=== PATIENT | male | born 1980 | race Caucasian/White ===

== ENCOUNTER 2016-12-13 15:09 | Emergency (ER) | payer OTHER ==
[~2016-12-13] VITALS: Wt 89.8 kg
[~2016-12-13 15:09] MED LIST: AMOXICILLIN500 M3 PO; AORACILLIN B500 MG PO; ATIVAN; ATIVAN0.5 MG PO; ATIVAN1 MG PO; AUGMENTIN 875 M1 TAB PO; BACTRIM DS 8001 TA1 PO; CIPRODEX 0.3%-7.5 ML OT; CLARITIN10 MG PO; COLACE100 MG PO; FIORICET 325 MG1 TAB PO; Fioricet 325 MG1 TAB PO; HYDROCODONE BIT1 T11 PO; KEFLEX500 MG PO; MOTRIN800 MG PO; NKHM; NORCO 325 MG-51 TAB PO; NORFLEX100 MG PO; PREDNISONE20 MG PO; TRAMADOL HCL50 MG PO; VICODIN 5/500 505 MG PO; ZANTAC150 MG PO; ZITHROMAX Z PA250 MG PO; ZOFRAN4 MG PO; ZYRTEC10 MG PO
[2016-12-13] MEDS ORDERED: NAPROSYN500 MG PO (15:58)
[2016-12-13] MEDS ORDERED: CYCLOBENZAPRINE10 MG PO (15:58)
== END 2016-12-13 16:00 | disposition home or self-care (01) ==
LOC: ED 15:09
DX: S39.012A Strain of muscle, fascia and tendon of lower back, initial encounter (principal); F17.200 Nicotine dependence, unspecified, uncomplicated; X50.9XXA Other and unspecified overexertion or strenuous movements or postures, initial encounter; Y93.89 Activity, other specified; Y92.9 Unspecified place or not applicable; Y99.9 Unspecified external cause status

== ENCOUNTER 2017-03-28 17:41 | Emergency (ER) | payer OTHER ==
[~2017-03-28] VITALS: Ht 182.8 cm; Wt 88.9 kg
[~2017-03-28 17:41] MED LIST changes: +CYCLOBENZAPRINE10 MG PO; +NAPROSYN500 MG PO
[2017-03-28] MEDS ORDERED: ANAPROX DS550 MG PO (17:58)
[2017-03-28] MEDS ORDERED: CYCLOBENZAPRINE10 MG PO (17:58)
== END 2017-03-28 18:00 | disposition home or self-care (01) ==
LOC: ED 17:41
DX: M54.2 Cervicalgia (principal); F14.10 Cocaine abuse, uncomplicated; F17.200 Nicotine dependence, unspecified, uncomplicated

== ENCOUNTER 2017-06-26 15:46 | Emergency (ER) | payer OTHER ==
[~2017-06-26] VITALS: Wt 81.6 kg
--- NOTE | ~2017-06-26 | EKG ---
[place], [place] ELECTROCARDIOGRAM REPORT NAME: MOISES MARTINES UNIT #: [id number] ROOM: DOCTOR: LEEANNA PILLAI MD BIRTHDATE: [birth year] DOS: 06/26/2017 TIME: 1556 hours. Normal sinus rhythm at 86 beats per minute. Low voltage in limb leads. The tracing is otherwise normal. No previous tracing is available for comparison. LEEANNA PILLAI MD CM:EKGRPT:ELECTROCARDIOGRAM REPORT [id number] LEEANNA PILLAI MD
[~2017-06-26 15:46] MED LIST changes: +ANAPROX DS550 MG PO
[2017-06-26 16:09] LABS: BASO # 0.1 10*3/uL (0.0-0.1); EOS # 0.2 10*3/uL (0.0-0.4); EOS % 1.9 % (1.0-4.0); HEMATOCRIT 45.7 % (42.0-52.0); HEMOGLOBIN 15.2 g/dl (14.0-18.0); LYMPH # 4.4 10*3/uL (1.3-4.4); LYMPH % 39.4 % (27.0-41.0); MEAN CELL VOLUME 90.1 fl (80.0-94.0); MEAN CORPUSCULAR HGB CONC 33.3 g/dl (33.0-37.0); MEAN PLATELET VOLUME 8.8 fl (9.6-12.3); MONO # 1.1 10*3/uL (0.1-1.0); MONO % 10.2 % (3.0-9.0); NEUT # 5.2 10*3/uL (2.3-7.9); NEUT % 47.1 % (47.0-73.0); PLATELET COUNT AUTOMATED 347 10*3/uL (130-400); RED BLOOD COUNT 5.07 10*6/uL (4.50-5.90); RED CELL DISTRI WIDTH 14.3 % (0-14.5); WHITE BLOOD COUNT 11.1 10*3/uL (4.8-10.8)
[2017-06-26 16:21] LABS: ACT PARTIAL THROMBO TIME 25.1 SECONDS (20.8-31.5)
[2017-06-26 16:27] LABS: ALBUMIN 4.2 gm/dl (3.1-4.5); ALKALINE PHOSPHATASE 72 U/L (45-117); BUN 9 mg/dl (7-24); CHLORIDE 106 mmol/L (98-107); CREATININE 0.91 mg/dL (0.70-1.30); LIPASE 112 U/L (73-393); POTASSIUM 3.7 mmol/L (3.5-5.1); SGOT/AST 22 IU/L (3-35); SGPT/ALT 38 U/L (12-78); SODIUM 140 mmol/L (136-145); TOTAL PROTEIN 7.7 gm/dL (6.4-8.2)
[2017-06-26 16:28] LABS: TROPONIN I < 0.015 ng/ml (<0.045)
[2017-06-26] MEDS ORDERED: ATIVAN1 MG PO (17:54)
== END 2017-06-26 18:02 | disposition home or self-care (01) ==
LOC: ED 15:46
PROVIDERS: Emergency Medicine
DX: F41.9 Anxiety disorder, unspecified (principal); R07.9 Chest pain, unspecified; R06.02 Shortness of breath; F17.200 Nicotine dependence, unspecified, uncomplicated

== ENCOUNTER 2017-07-03 01:21 | Emergency (ER) | payer OTHER ==
[~2017-07-03] VITALS: Ht 177.8 cm; Wt 90.7 kg
[2017-07-03 02:13] LABS: BASO # 0.1 10*3/uL (0.0-0.1); BASO % 0.7 % (0.0-1.0); EOS # 0.3 10*3/uL (0.0-0.4); EOS % 2.4 % (1.0-4.0); HEMATOCRIT 43.8 % (42.0-52.0); HEMOGLOBIN 14.9 g/dl (14.0-18.0); LYMPH # 3.8 10*3/uL (1.3-4.4); LYMPH % 33.7 % (27.0-41.0); MEAN CELL VOLUME 89.8 fl (80.0-94.0); MEAN CORPUSCULAR HGB 30.5 pg (27.0-31.0); MEAN PLATELET VOLUME 8.9 fl (9.6-12.3); MONO # 1.3 10*3/uL (0.1-1.0); MONO % 11.2 % (3.0-9.0); NEUT # 5.8 10*3/uL (2.3-7.9); NEUT % 51.6 % (47.0-73.0); PLATELET COUNT AUTOMATED 333 10*3/uL (130-400); RED BLOOD COUNT 4.88 10*6/uL (4.50-5.90); RED CELL DISTRI WIDTH 13.4 % (0-14.5); WHITE BLOOD COUNT 11.3 10*3/uL (4.8-10.8)
[2017-07-03 02:29] LABS: ALBUMIN 3.8 gm/dl (3.1-4.5); ALKALINE PHOSPHATASE 66 U/L (45-117); BUN 18 mg/dl (7-24); CHLORIDE 105 mmol/L (98-107); CREATININE 0.77 mg/dL (0.70-1.30); POTASSIUM 3.5 mmol/L (3.5-5.1); SGOT/AST 26 IU/L (3-35); SGPT/ALT 59 U/L (12-78); SODIUM 142 mmol/L (136-145)
[2017-07-03 02:30] LABS: TROPONIN I < 0.015 ng/ml (<0.045)
== END 2017-07-03 05:20 | disposition home or self-care (01) ==
LOC: ED 01:21
PROVIDERS: Family Medicine
DX: I10 Essential (primary) hypertension (principal); R07.9 Chest pain, unspecified; R51 Headache; R11.0 Nausea; R42 Dizziness and giddiness; Z91.19 Patient's noncompliance with other medical treatment and regimen; F17.200 Nicotine dependence, unspecified, uncomplicated

== ENCOUNTER 2017-08-17 17:58 | Emergency (ER) | payer OTHER ==
[~2017-08-17] VITALS: Ht 182.8 cm; Wt 97.1 kg
[2017-08-17] MEDS ORDERED: PROAIR HFA8.5 GM INH (19:06)
[2017-08-17] MEDS ORDERED: HYCODAN/HYDROMET5 ML PO (19:06)
[2017-08-17] MEDS ORDERED: TESSALON PERLE100 M1 PO (19:06)
== END 2017-08-17 19:21 | disposition home or self-care (01) ==
LOC: ED 17:58
DX: B34.9 Viral infection, unspecified (principal); F17.200 Nicotine dependence, unspecified, uncomplicated; Z79.899 Other long term (current) drug therapy

== ENCOUNTER 2018-02-27 07:53 | Emergency (ER) | payer OTHER ==
[~2018-02-27] VITALS: Ht 182.8 cm; Wt 97.5 kg
--- NOTE | ~2018-02-27 | EKG ---
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
[~2018-02-27 07:53] MED LIST changes: +HYCODAN/HYDROMET5 ML PO; +PROAIR HFA8.5 GM INH; +TESSALON PERLE100 M1 PO
[2018-02-27] MEDS ORDERED: LOSARTAN-HCTZ1 EACH PO (07:59)
[2018-02-27] MEDS ORDERED: ASPIRIN ADULT L81 M2 PO (07:59)
[2018-02-27] MEDS ORDERED: Lopressor25 MG PO (07:59)
[2018-02-27] MEDS ORDERED: LORAZEPAM1 MG PO (08:00)
[2018-02-27 08:09] LABS: BASO # 0.1 10*3/uL (0.0-0.1); EOS # 0.2 10*3/uL (0.0-0.4); EOS % 1.9 % (1.0-4.0); HEMATOCRIT 41.2 % (42.0-52.0); HEMOGLOBIN 13.9 g/dl (14.0-18.0); LYMPH # 4.3 10*3/uL (1.3-4.4); LYMPH % 43.2 % (27.0-41.0); MEAN CELL VOLUME 88.6 fl (80.0-94.0); MEAN CORPUSCULAR HGB 29.9 pg (27.0-31.0); MEAN CORPUSCULAR HGB CONC 33.7 g/dl (33.0-37.0); MEAN PLATELET VOLUME 8.9 fl (9.6-12.3); MONO # 1.1 10*3/uL (0.1-1.0); MONO % 10.9 % (3.0-9.0); NEUT # 4.2 10*3/uL (2.3-7.9); NEUT % 42.4 % (47.0-73.0); PLATELET COUNT AUTOMATED 352 10*3/uL (130-400); RED BLOOD COUNT 4.65 10*6/uL (4.50-5.90); RED CELL DISTRI WIDTH 13.2 % (0-14.5)
[2018-02-27 08:18] LABS: ACT PARTIAL THROMBO TIME 24.4 SECONDS (20.8-31.5); INTERNATIONAL NORM RATIO 0.9 (2.0-3.5)
[2018-02-27 08:30] LABS: ALBUMIN 3.5 gm/dl (3.1-4.5); ALKALINE PHOSPHATASE 70 U/L (45-117); BUN 10 mg/dl (7-24); CHLORIDE 107 mmol/L (98-107); CREATININE 0.92 mg/dL (0.70-1.30); LIPASE 124 U/L (73-393); POTASSIUM 3.6 mmol/L (3.5-5.1); SGOT/AST 29 IU/L (3-35); SGPT/ALT 60 U/L (12-78); SODIUM 141 mmol/L (136-145); TOTAL PROTEIN 7.1 gm/dL (6.4-8.2)
[2018-02-27 08:31] LABS: TROPONIN I < 0.015 ng/ml (<0.045)
== END 2018-02-27 10:18 | disposition home or self-care (01) ==
LOC: ED 07:53
PROVIDERS: Emergency Medicine
DX: R07.9 Chest pain, unspecified (principal); I10 Essential (primary) hypertension; R42 Dizziness and giddiness; R11.0 Nausea; R06.02 Shortness of breath; M54.5 Low back pain; F41.9 Anxiety disorder, unspecified; G43.909 Migraine, unspecified, not intractable, without status migrainosus; Z87.891 Personal history of nicotine dependence; Z79.82 Long term (current) use of aspirin; Z79.899 Other long term (current) drug therapy

== ENCOUNTER 2018-04-08 19:42 | Emergency (ER) | payer OTHER ==
[~2018-04-08] VITALS: Wt 95.3 kg
[~2018-04-08 19:42] MED LIST changes: +ASPIRIN ADULT L81 M2 PO; +LORAZEPAM1 MG PO; +LOSARTAN-HCTZ1 EACH PO; +Lopressor25 MG PO
== END 2018-04-08 20:36 | disposition home or self-care (01) ==
LOC: ED 19:42
DX: J06.9 Acute upper respiratory infection, unspecified (principal); Z79.899 Other long term (current) drug therapy; Z79.82 Long term (current) use of aspirin

== ENCOUNTER 2018-04-24 22:42 | Emergency (ER) | payer OTHER ==
[~2018-04-24] VITALS: Ht 182.8 cm; Wt 95.3 kg
[2018-04-24] MEDS ORDERED: HYDROXYZINE HCL25 MG PO (22:50)
== END 2018-04-24 23:28 | disposition home or self-care (01) ==
LOC: ED 22:42
DX: F41.9 Anxiety disorder, unspecified (principal); I10 Essential (primary) hypertension; G43.909 Migraine, unspecified, not intractable, without status migrainosus; Z79.899 Other long term (current) drug therapy; Z87.891 Personal history of nicotine dependence

== ENCOUNTER 2018-05-13 09:47 | Emergency (ER) | payer OTHER ==
[~2018-05-13] VITALS: Ht 182.8 cm; Wt 95.3 kg
[~2018-05-13 09:47] MED LIST changes: +HYDROXYZINE HCL25 MG PO
[2018-05-13] MEDS ORDERED: PREDNISONE10 MG PO (10:00)
== END 2018-05-13 10:10 | disposition home or self-care (01) ==
LOC: ED 09:47
DX: L30.9 Dermatitis, unspecified (principal); I10 Essential (primary) hypertension; G43.909 Migraine, unspecified, not intractable, without status migrainosus; F17.200 Nicotine dependence, unspecified, uncomplicated; Z79.899 Other long term (current) drug therapy

== ENCOUNTER → 2018-05-31 | Emergency (ER) | payer OTHER ==
[~2018-05-31] VITALS: Ht 182.8 cm; Wt 95.3 kg
[~2018-05-31] MED LIST changes: +AMOXICILLIN500 M2 PO; +FLONASE ALLERG9.9 ML NAS; +PREDNISONE10 MG PO
--- NOTE | ~2018-05-31 | EKG ---
[place], [place] ELECTROCARDIOGRAM REPORT NAME: MOISES MARTINES UNIT #: [id number] ROOM: DOCTOR: EPIPHANY DRAFT REPORT BIRTHDATE: [birth year] [facility] Test Date: 2018-05-31 Test Time: 09:14:59 Pat Name: MOISES MARTINES Department: Room: Gender: Order Manager: : 1980 Requested By: NESSA AGUILAR Order Number: [id number] Reading MD: Myron Cummings MD Measurements Intervals [place] Rate: 77 P: 44 DC: 173 QRS: -21 QRSD: 103 T: 31 QT: 373 QTc: 423 Interpretive Statements Sinus rhythm Borderline left axis deviation Low voltage, extremity leads Compared to ECG 04/16/2018 12:00:53 No significant changes Electronically Signed On 06-02-2018 8:25:51 PST by Myron Cummings MD CM:EKGRPT:ELECTROCARDIOGRAM REPORT [id number] NESSA AGUILAR EPIPHANY DRAFT REPORT NESSA AGUILAR
[2018-05-31 09:20] LABS: BASO # 0.1 10*3/uL (0.0-0.1); BASO % 0.8 % (0.0-1.0); EOS # 0.2 10*3/uL (0.0-0.4); EOS % 2.2 % (1.0-4.0); HEMATOCRIT 43.4 % (42.0-52.0); HEMOGLOBIN 14.7 g/dl (14.0-18.0); LYMPH # 3.2 10*3/uL (1.3-4.4); MEAN CELL VOLUME 86.8 fl (80.0-94.0); MEAN CORPUSCULAR HGB 29.4 pg (27.0-31.0); MEAN CORPUSCULAR HGB CONC 33.9 g/dl (33.0-37.0); MEAN PLATELET VOLUME 8.7 fl (9.6-12.3); MONO # 0.8 10*3/uL (0.1-1.0); MONO % 7.9 % (3.0-9.0); NEUT # 5.6 10*3/uL (2.3-7.9); NEUT % 56.8 % (47.0-73.0); PLATELET COUNT AUTOMATED 370 10*3/uL (130-400); RED CELL DISTRI WIDTH 12.9 % (0-14.5); WHITE BLOOD COUNT 9.9 10*3/uL (4.8-10.8)
[2018-05-31 09:37] LABS: ALBUMIN 3.9 gm/dl (3.1-4.5); ALKALINE PHOSPHATASE 81 U/L (45-117); BUN 16 mg/dl (7-24); CHLORIDE 105 mmol/L (98-107); POTASSIUM 3.4 mmol/L (3.5-5.1); SGOT/AST 25 IU/L (3-35); SGPT/ALT 47 U/L (12-78); SODIUM 139 mmol/L (136-145); TOTAL PROTEIN 7.3 gm/dL (6.4-8.2)
[2018-05-31 09:43] LABS: TROPONIN I < 0.015 ng/ml (<0.045)
== END ==
LOC: ED 08:57
PROVIDERS: Nurse Practitioner Family
DX: I10 Essential (primary) hypertension (principal); R42 Dizziness and giddiness; Z79.899 Other long term (current) drug therapy

== ENCOUNTER 2018-06-05 | Emergency (ER) | payer OTHER ==
[~2018-06-05] MED LIST changes: -AMOXICILLIN500 M2 PO; -FLONASE ALLERG9.9 ML NAS
--- NOTE | ~2018-06-05 | EKG ---
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
[2018-06-05 10:07] LABS: BASO # 0.1 10*3/uL (0.0-0.1); EOS # 0.1 10*3/uL (0.0-0.4); EOS % 1.9 % (1.0-4.0); HEMATOCRIT 45.4 % (42.0-52.0); HEMOGLOBIN 15.2 g/dl (14.0-18.0); LYMPH # 2.5 10*3/uL (1.3-4.4); LYMPH % 37.1 % (27.0-41.0); MEAN CELL VOLUME 87.8 fl (80.0-94.0); MEAN CORPUSCULAR HGB 29.4 pg (27.0-31.0); MEAN CORPUSCULAR HGB CONC 33.5 g/dl (33.0-37.0); MONO # 0.6 10*3/uL (0.1-1.0); MONO % 9.1 % (3.0-9.0); NEUT # 3.5 10*3/uL (2.3-7.9); NEUT % 50.6 % (47.0-73.0); PLATELET COUNT AUTOMATED 395 10*3/uL (130-400); RED BLOOD COUNT 5.17 10*6/uL (4.50-5.90); RED CELL DISTRI WIDTH 12.9 % (0-14.5); WHITE BLOOD COUNT 6.8 10*3/uL (4.8-10.8)
[2018-06-05 10:22] LABS: ALKALINE PHOSPHATASE 79 U/L (45-117); BUN 8 mg/dl (7-24); CHLORIDE 104 mmol/L (98-107); CREATININE 0.82 mg/dL (0.70-1.30); LIPASE 93 U/L (73-393); POTASSIUM 3.5 mmol/L (3.5-5.1); SGOT/AST 27 IU/L (3-35); SGPT/ALT 68 U/L (12-78); SODIUM 139 mmol/L (136-145); TOTAL PROTEIN 7.6 gm/dL (6.4-8.2)
[2018-06-05 10:24] LABS: BILIRUBIN NEGATIVE (NEGATIVE); BLOOD NEGATIVE (NEGATIVE); CLARITY CLEAR (CLEAR); COLOR YELLOW (YELLOW); GLUCOSE NEGATIVE (NEGATIVE); KETONE NEGATIVE (NEGATIVE); LEUKO ESTERASE NEGATIVE (NEGATIVE); NITRITE NEGATIVE (NEGATIVE); SPECIFIC GRAVITY <= 1.005 (1.005-1.030); UROBILINOGEN 0.2 E.U./dl (0.2-1.0)
[2018-06-05 10:24] LABS: TROPONIN I < 0.015 ng/ml (<0.045)
[2018-06-05 10:45] LABS: ACT PARTIAL THROMBO TIME 25.8 SECONDS (20.8-31.5); INTERNATIONAL NORM RATIO 0.9 (2.0-3.5)
== END 2018-06-05 11:43 | disposition home or self-care (01) ==
PROVIDERS: Physician Assistant
DX: R42 Dizziness and giddiness (principal); I10 Essential (primary) hypertension; F17.200 Nicotine dependence, unspecified, uncomplicated; Z79.899 Other long term (current) drug therapy

== ENCOUNTER 2018-06-22 15:52 | Emergency (ER) | payer OTHER ==
[~2018-06-22] VITALS: Ht 182.8 cm; Wt 97.5 kg
[2018-06-22] MEDS ORDERED: ZYRTEC10 MG PO (16:43)
[2018-06-23] MEDS ORDERED: FLONASE ALLERG9.9 ML NAS (15:45)
== END 2018-06-22 17:14 | disposition home or self-care (01) ==
LOC: ED 15:52
DX: J06.9 Acute upper respiratory infection, unspecified (principal); F17.200 Nicotine dependence, unspecified, uncomplicated; F14.10 Cocaine abuse, uncomplicated; Z79.899 Other long term (current) drug therapy

== ENCOUNTER 2018-06-23 15:16 | Emergency (ER) | payer OTHER ==
[2018-06-23] MEDS ORDERED: FLONASE ALLERG9.9 ML NAS (15:45)
== END 2018-06-23 15:55 | disposition home or self-care (01) ==
LOC: ED 15:16
DX: H93.13 Tinnitus, bilateral (principal); H61.23 Impacted cerumen, bilateral; Z79.899 Other long term (current) drug therapy

== ENCOUNTER 2018-06-25 08:55 | Emergency (ER) | payer OTHER ==
[~2018-06-25] VITALS: Ht 182.8 cm; Wt 97.5 kg
[~2018-06-25 08:55] MED LIST changes: +FLONASE ALLERG9.9 ML NAS
== END 2018-06-25 10:44 | disposition home or self-care (01) ==
LOC: ED 08:55
DX: B00.9 Herpesviral infection, unspecified (principal); I10 Essential (primary) hypertension; G43.909 Migraine, unspecified, not intractable, without status migrainosus; Z79.899 Other long term (current) drug therapy

== ENCOUNTER 2018-07-07 23:18 | Emergency (ER) | payer OTHER ==
[~2018-07-07] VITALS: Ht 182.8 cm; Wt 97.5 kg
[2018-07-07] MEDS ORDERED: AMOXICILLIN500 M2 PO (23:30)
== END 2018-07-07 23:56 | disposition home or self-care (01) ==
LOC: ED 23:18
DX: J32.9 Chronic sinusitis, unspecified (principal); H92.01 Otalgia, right ear; Z79.899 Other long term (current) drug therapy

== ENCOUNTER 2018-09-01 08:14 | Emergency (ER) | payer OTHER ==
[~2018-09-01] VITALS: Ht 182.8 cm; Wt 94.8 kg
--- NOTE | ~2018-09-01 | EKG ---
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
[~2018-09-01 08:14] MED LIST changes: +AMOXICILLIN500 M2 PO
[2018-09-01 08:41] LABS: BASO # 0.1 10*3/uL (0.0-0.1); BASO % 1.5 % (0.0-1.0); EOS # 0.2 10*3/uL (0.0-0.4); EOS % 2.5 % (1.0-4.0); HEMATOCRIT 47.5 % (42.0-52.0); HEMOGLOBIN 15.6 g/dl (14.0-18.0); LYMPH # 2.4 10*3/uL (1.3-4.4); LYMPH % 34.7 % (27.0-41.0); MEAN CELL VOLUME 89.3 fl (80.0-94.0); MEAN CORPUSCULAR HGB 29.3 pg (27.0-31.0); MEAN CORPUSCULAR HGB CONC 32.8 g/dl (33.0-37.0); MEAN PLATELET VOLUME 9.1 fl (9.6-12.3); MONO # 0.6 10*3/uL (0.1-1.0); NEUT # 3.7 10*3/uL (2.3-7.9); NEUT % 52.9 % (47.0-73.0); PLATELET COUNT AUTOMATED 430 10*3/uL (130-400); RED BLOOD COUNT 5.32 10*6/uL (4.50-5.90); WHITE BLOOD COUNT 6.9 10*3/uL (4.8-10.8)
[2018-09-01 08:49] LABS: ACT PARTIAL THROMBO TIME 25.2 SECONDS (20.8-31.5); INTERNATIONAL NORM RATIO 0.9 (2.0-3.5)
[2018-09-01 09:05] LABS: ALKALINE PHOSPHATASE 71 U/L (45-117); BUN 10 mg/dl (7-24); CHLORIDE 104 mmol/L (98-107); CREATININE 0.85 mg/dL (0.70-1.30); LIPASE 71 U/L (73-393); POTASSIUM 3.4 mmol/L (3.5-5.1); SGOT/AST 21 IU/L (3-35); SGPT/ALT 36 U/L (12-78); SODIUM 141 mmol/L (136-145); TOTAL PROTEIN 7.5 gm/dL (6.4-8.2); TROPONIN I < 0.015 ng/ml (<0.045)
== END 2018-09-01 11:07 | disposition home or self-care (01) ==
LOC: ED 08:14
PROVIDERS: Emergency Medicine
DX: I10 Essential (primary) hypertension (principal); R11.10 Vomiting, unspecified; G43.909 Migraine, unspecified, not intractable, without status migrainosus; Z87.891 Personal history of nicotine dependence; Z79.899 Other long term (current) drug therapy; Z79.2 Long term (current) use of antibiotics

== ENCOUNTER 2018-11-09 08:20 | Emergency (ER) | payer OTHER ==
[~2018-11-09] VITALS: Ht 182.8 cm; Wt 86.2 kg
--- NOTE | ~2018-11-09 | EKG ---
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
[2018-11-09 08:58] LABS: BASO # 0.1 10*3/uL (0.0-0.1); BASO % 0.9 % (0.0-1.0); EOS # 0.4 10*3/uL (0.0-0.4); EOS % 5.4 % (1.0-4.0); HEMATOCRIT 44.3 % (42.0-52.0); HEMOGLOBIN 14.5 g/dl (14.0-18.0); LYMPH # 2.6 10*3/uL (1.3-4.4); LYMPH % 33.6 % (27.0-41.0); MEAN CELL VOLUME 88.2 fl (80.0-94.0); MEAN CORPUSCULAR HGB 28.9 pg (27.0-31.0); MEAN CORPUSCULAR HGB CONC 32.7 g/dl (33.0-37.0); MONO # 0.8 10*3/uL (0.1-1.0); NEUT # 3.9 10*3/uL (2.3-7.9); NEUT % 49.8 % (47.0-73.0); PLATELET COUNT AUTOMATED 321 10*3/uL (130-400); RED BLOOD COUNT 5.02 10*6/uL (4.50-5.90); RED CELL DISTRI WIDTH 13.2 % (0-14.5); WHITE BLOOD COUNT 7.8 10*3/uL (4.8-10.8)
[2018-11-09 09:09] LABS: ACT PARTIAL THROMBO TIME 28.4 SECONDS (20.0-32.1); INTERNATIONAL NORM RATIO 0.9 (2.0-3.5)
[2018-11-09 09:13] LABS: ALBUMIN 3.5 gm/dl (3.1-4.5); ALKALINE PHOSPHATASE 63 U/L (45-117); BUN 11 mg/dl (7-24); CHLORIDE 106 mmol/L (98-107); CREATININE 0.84 mg/dL (0.70-1.30); LIPASE 80 U/L (73-393); POTASSIUM 3.5 mmol/L (3.5-5.1); SGOT/AST 21 IU/L (3-35); SGPT/ALT 47 U/L (12-78); SODIUM 139 mmol/L (136-145); TOTAL PROTEIN 6.8 gm/dL (6.4-8.2)
[2018-11-09 09:14] LABS: TROPONIN I < 0.015 ng/ml (<0.045)
== END 2018-11-09 10:27 | disposition home or self-care (01) ==
LOC: ED 08:20
PROVIDERS: Emergency Medicine
DX: I10 Essential (primary) hypertension (principal); G43.909 Migraine, unspecified, not intractable, without status migrainosus; F17.200 Nicotine dependence, unspecified, uncomplicated; Z79.899 Other long term (current) drug therapy

== ENCOUNTER 2019-03-18 13:48 | Emergency (ER) | payer OTHER ==
[~2019-03-18] VITALS: Ht 193 cm; Wt 90.7 kg
[2019-03-18 14:21] LABS: BASO # 0.1 10*3/uL (0.0-0.1); BASO % 1.1 % (0.0-1.0); EOS # 0.4 10*3/uL (0.0-0.4); HEMATOCRIT 44.9 % (42.0-52.0); HEMOGLOBIN 14.9 g/dl (14.0-18.0); MEAN CELL VOLUME 87.7 fl (80.0-94.0); MEAN CORPUSCULAR HGB 29.1 pg (27.0-31.0); MEAN CORPUSCULAR HGB CONC 33.2 g/dl (33.0-37.0); MEAN PLATELET VOLUME 8.7 fl (9.6-12.3); MONO # 0.8 10*3/uL (0.1-1.0); NEUT # 4.6 10*3/uL (2.3-7.9); NEUT % 51.7 % (47.0-73.0); PLATELET COUNT AUTOMATED 359 10*3/uL (130-400); RED BLOOD COUNT 5.12 10*6/uL (4.50-5.90); RED CELL DISTRI WIDTH 12.6 % (0-14.5); WHITE BLOOD COUNT 8.9 10*3/uL (4.8-10.8)
[2019-03-18 14:45] LABS: ACT PARTIAL THROMBO TIME 28.8 SECONDS (20.0-32.1); INTERNATIONAL NORM RATIO 0.9 (2.0-3.5)
[2019-03-18 14:51] LABS: ALBUMIN 3.9 gm/dl (3.1-4.5); ALKALINE PHOSPHATASE 66 U/L (45-117); BUN 13 mg/dl (7-24); CHLORIDE 104 mmol/L (98-107); CREATININE 0.77 mg/dL (0.70-1.30); POTASSIUM 3.4 mmol/L (3.5-5.1); SGOT/AST 21 IU/L (3-35); SGPT/ALT 39 U/L (12-78); SODIUM 138 mmol/L (136-145); TOTAL PROTEIN 7.4 gm/dL (6.4-8.2)
[2019-03-18 14:55] LABS: TROPONIN I < 0.015 ng/ml (<0.045)
[2019-03-18 15:15] LABS: BILIRUBIN NEGATIVE (NEGATIVE); BLOOD NEGATIVE (NEGATIVE); CLARITY SL CLOUDY (CLEAR); COLOR YELLOW (YELLOW); GLUCOSE NEGATIVE (NEGATIVE); KETONE NEGATIVE (NEGATIVE); LEUKO ESTERASE NEGATIVE (NEGATIVE); NITRITE NEGATIVE (NEGATIVE); PH 8.5 (5.0-9.0); SPECIFIC GRAVITY 1.015 (1.005-1.030); UROBILINOGEN 0.2 E.U./dl (0.2-1.0)
[2019-03-18 15:39] LABS: URINE AMPHETAMINES < 1000 (1000ng/ml); URINE BARBITURATES < 200 (200ng/ml); URINE BENZODIAZEPINES < 200 (200ng/ml); URINE CANNABINOIDS (THC) > 50 (50ng/ml); URINE COCAINE < 300 (300ng/ml); URINE METHADONE < 300 (300ng/ml); URINE OPIATES < 300 (300ng/ml)
[2019-03-18 15:43] LABS: URINE PHENCYCLIDINE < 25 (25ng/ml)
== END 2019-03-18 16:21 | disposition home or self-care (01) ==
LOC: ED 13:48
PROVIDERS: Emergency Medicine
DX: R07.89 Other chest pain (principal); H53.59 Other color vision deficiencies; F17.200 Nicotine dependence, unspecified, uncomplicated; F14.10 Cocaine abuse, uncomplicated; I10 Essential (primary) hypertension; F12.90 Cannabis use, unspecified, uncomplicated; G43.909 Migraine, unspecified, not intractable, without status migrainosus; Z79.899 Other long term (current) drug therapy

== ENCOUNTER 2019-05-15 21:20 | Emergency (ER) | payer OTHER ==
[~2019-05-15] VITALS: Ht 175.2 cm; Wt 90.7 kg
[2019-05-15 21:46] LABS: BASO # 0.1 10*3/uL (0.0-0.1); BASO % 0.8 % (0.0-1.0); EOS # 0.2 10*3/uL (0.0-0.4); EOS % 1.9 % (1.0-4.0); HEMATOCRIT 46.9 % (42.0-52.0); HEMOGLOBIN 15.2 g/dl (14.0-18.0); LYMPH % 38.3 % (27.0-41.0); MEAN CORPUSCULAR HGB 28.5 pg (27.0-31.0); MEAN CORPUSCULAR HGB CONC 32.4 g/dl (33.0-37.0); MEAN PLATELET VOLUME 8.7 fl (9.6-12.3); MONO % 9.2 % (3.0-9.0); NEUT # 5.2 10*3/uL (2.3-7.9); NEUT % 49.5 % (47.0-73.0); PLATELET COUNT AUTOMATED 403 10*3/uL (130-400); RED BLOOD COUNT 5.33 10*6/uL (4.50-5.90); RED CELL DISTRI WIDTH 12.8 % (0-14.5); WHITE BLOOD COUNT 10.4 10*3/uL (4.8-10.8)
[2019-05-15 21:55] LABS: ACT PARTIAL THROMBO TIME 26.3 SECONDS (20.0-32.1); INTERNATIONAL NORM RATIO 0.9 (2.0-3.5)
[2019-05-15 22:02] LABS: ALKALINE PHOSPHATASE 64 U/L (45-117); BUN 19 mg/dl (7-24); CHLORIDE 105 mmol/L (98-107); CREATININE 1.04 mg/dL (0.70-1.30); POTASSIUM 3.3 mmol/L (3.5-5.1); SGOT/AST 35 IU/L (3-35); SGPT/ALT 66 U/L (12-78); SODIUM 138 mmol/L (136-145); TOTAL PROTEIN 7.7 gm/dL (6.4-8.2)
[2019-05-15 22:04] LABS: TROPONIN I < 0.015 ng/ml (<0.045)
== END 2019-05-15 22:52 | disposition home or self-care (01) ==
LOC: ED 21:20
PROVIDERS: Emergency Medicine
DX: R07.9 Chest pain, unspecified (principal); F41.9 Anxiety disorder, unspecified; G43.909 Migraine, unspecified, not intractable, without status migrainosus; I10 Essential (primary) hypertension; F12.90 Cannabis use, unspecified, uncomplicated; R42 Dizziness and giddiness; R41.0 Disorientation, unspecified; Z79.899 Other long term (current) drug therapy; Z87.891 Personal history of nicotine dependence

== ENCOUNTER 2020-02-10 11:32 | Emergency (ER) | payer OTHER ==
[~2020-02-10] VITALS: Ht 182.8 cm; Wt 82.6 kg
[2020-02-10] MEDS ORDERED: ANTIBIOTIC28.4 GM T (12:43)
[2020-02-10] MEDS ORDERED: SEPTDS PO (12:43)
[2020-02-10] MEDS ORDERED: CEPHALEXIN500 M1 PO (12:43)
== END 2020-02-10 12:52 | disposition home or self-care (01) ==
LOC: ED 11:32
DX: S80.811A Abrasion, right lower leg, initial encounter (principal); I10 Essential (primary) hypertension; F41.9 Anxiety disorder, unspecified; Z87.891 Personal history of nicotine dependence; Z79.899 Other long term (current) drug therapy; X58.XXXA Exposure to other specified factors, initial encounter; Y93.89 Activity, other specified; Y92.89 Other specified places as the place of occurrence of the external cause; Y99.8 Other external cause status

== ENCOUNTER 2020-02-12 03:45 | Emergency (ER) | payer OTHER ==
[~2020-02-12] VITALS: Ht 182.8 cm; Wt 82.6 kg
[~2020-02-12 03:45] MED LIST changes: +ANTIBIOTIC28.4 GM T; +CEPHALEXIN500 M1 PO; +SEPTDS PO
[2020-02-12 04:45] LABS: BASO # 0.1 10*3/uL (0.0-0.1); BASO % 0.8 % (0.0-1.0); EOS # 0.2 10*3/uL (0.0-0.4); EOS % 2.2 % (1.0-4.0); HEMATOCRIT 40.6 % (42.0-52.0); LYMPH # 2.6 10*3/uL (1.3-4.4); LYMPH % 26.8 % (27.0-41.0); MEAN CELL VOLUME 88.5 fl (80.0-94.0); MEAN CORPUSCULAR HGB 28.1 pg (27.0-31.0); MEAN CORPUSCULAR HGB CONC 31.8 g/dl (33.0-37.0); MEAN PLATELET VOLUME 9.1 fl (9.6-12.3); MONO # 0.9 10*3/uL (0.1-1.0); NEUT # 5.8 10*3/uL (2.3-7.9); NEUT % 60.9 % (47.0-73.0); PLATELET COUNT AUTOMATED 320 10*3/uL (130-400); RED BLOOD COUNT 4.59 10*6/uL (4.50-5.90); RED CELL DISTRI WIDTH 13.4 % (0-14.5); WHITE BLOOD COUNT 9.6 10*3/uL (4.8-10.8)
[2020-02-12 05:02] LABS: ALBUMIN 3.5 gm/dl (3.1-4.5); ALKALINE PHOSPHATASE 60 U/L (45-117); BUN 17 mg/dl (7-24); CHLORIDE 108 mmol/L (98-107); CREATININE 1.06 mg/dL (0.70-1.30); SGOT/AST 14 IU/L (3-35); SGPT/ALT 24 U/L (12-78); SODIUM 139 mmol/L (136-145)
[2020-02-12] MEDS ORDERED: CLINDAMYCIN HC300 MG PO (05:52)
== END 2020-02-12 06:10 | disposition left against medical advice (07) ==
LOC: ED 03:45
PROVIDERS: Emergency Medicine
DX: T14.8XXA Other injury of unspecified body region, initial encounter (principal); L03.115 Cellulitis of right lower limb; Z79.899 Other long term (current) drug therapy; X58.XXXA Exposure to other specified factors, initial encounter; Y93.89 Activity, other specified; Y92.89 Other specified places as the place of occurrence of the external cause; Y99.8 Other external cause status

== ENCOUNTER 2020-03-03 16:20 | Emergency (ER) | payer OTHER ==
[~2020-03-03] VITALS: Wt 82.1 kg
[~2020-03-03 16:20] MED LIST changes: +CLINDAMYCIN HC300 MG PO
[2020-03-03] MEDS ORDERED: AMOXICILLIN500 M2 PO ×3 (16:37→17:05)
== END 2020-03-03 16:47 | disposition home or self-care (01) ==
LOC: ED 16:20
DX: J01.90 Acute sinusitis, unspecified (principal); I10 Essential (primary) hypertension; F41.9 Anxiety disorder, unspecified; Z79.899 Other long term (current) drug therapy

== ENCOUNTER 2020-03-06 02:29 | Emergency (ER) | payer OTHER ==
[~2020-03-06] VITALS: Ht 182.8 cm; Wt 82.1 kg
== END 2020-03-06 03:20 | disposition left against medical advice (07) ==
LOC: ED 02:29
DX: R11.0 Nausea (principal); R03.0 Elevated blood-pressure reading, without diagnosis of hypertension; Z53.21 Procedure and treatment not carried out due to patient leaving prior to being seen by health care provider

== ENCOUNTER 2020-03-21 11:49 | Emergency (ER) | payer OTHER | END 2020-03-21 12:36 | disposition left against medical advice (07) | LOC: ED 11:49 | DX: F41.0 Panic disorder [episodic paroxysmal anxiety] (principal); Z53.21 Procedure and treatment not carried out due to patient leaving prior to being seen by health care provider ==

== ENCOUNTER 2020-04-07 14:38 | Emergency (ER) | payer OTHER ==
[~2020-04-07] VITALS: Ht 182.8 cm; Wt 86.2 kg
[2020-04-07 14:54] LABS: BASO # 0.1 10*3/uL (0.0-0.1); BASO % 0.8 % (0.0-1.0); EOS % 0.4 % (1.0-4.0); LYMPH # 2.7 10*3/uL (1.3-4.4); LYMPH % 25.4 % (27.0-41.0); MEAN CORPUSCULAR HGB CONC 32.6 g/dl (33.0-37.0); MEAN PLATELET VOLUME 8.5 fl (9.6-12.3); MONO # 0.9 10*3/uL (0.1-1.0); MONO % 8.2 % (3.0-9.0); NEUT # 6.9 10*3/uL (2.3-7.9); PLATELET COUNT AUTOMATED 391 10*3/uL (130-400); RED BLOOD COUNT 5.35 10*6/uL (4.50-5.90); RED CELL DISTRI WIDTH 13.2 % (0-14.5); WHITE BLOOD COUNT 10.6 10*3/uL (4.8-10.8)
[2020-04-07 15:05] LABS: ACT PARTIAL THROMBO TIME 26.9 SECONDS (20.0-32.1)
[2020-04-07 15:15] LABS: ALBUMIN 4.2 gm/dl (3.1-4.5); ALKALINE PHOSPHATASE 65 U/L (45-117); BUN 14 mg/dl (7-24); CHLORIDE 108 mmol/L (98-107); CREATININE 1.08 mg/dL (0.70-1.30); POTASSIUM 3.5 mmol/L (3.5-5.1); SGOT/AST 19 IU/L (3-35); SGPT/ALT 31 U/L (12-78); SODIUM 142 mmol/L (136-145); TOTAL PROTEIN 7.9 gm/dL (6.4-8.2)
[2020-04-07 15:29] LABS: TROPONIN I < 0.015 ng/ml (<0.045)
== END 2020-04-07 17:50 | disposition home or self-care (01) ==
LOC: ED 14:38
PROVIDERS: Emergency Medicine
DX: R07.9 Chest pain, unspecified (principal); Z79.899 Other long term (current) drug therapy; Z87.891 Personal history of nicotine dependence

== ENCOUNTER 2020-10-23 23:00 | Emergency (ER) | payer OTHER ==
[~2020-10-23] VITALS: Ht 185.4 cm; Wt 79.4 kg
[2020-10-23] MEDS ORDERED: ATIVAN1 MG PO (23:04)
== END 2020-10-23 23:30 | disposition home or self-care (01) ==
LOC: ED 23:00
DX: J30.9 Allergic rhinitis, unspecified (principal)

== ENCOUNTER 2021-01-28 08:47 | Emergency (ER) | payer OTHER ==
[~2021-01-28] VITALS: Ht 182.8 cm; Wt 79.4 kg
== END 2021-01-28 10:04 | disposition home or self-care (01) ==
LOC: ED 08:47
DX: K12.0 Recurrent oral aphthae (principal); F17.200 Nicotine dependence, unspecified, uncomplicated; Z79.899 Other long term (current) drug therapy

== ENCOUNTER 2021-03-20 00:15 | Emergency (ER) | payer OTHER ==
[~2021-03-20] VITALS: Ht 182.8 cm; Wt 79.4 kg
== END 2021-03-20 00:54 | disposition home or self-care (01) ==
LOC: ED 00:15
DX: I10 Essential (primary) hypertension (principal)

== ENCOUNTER 2021-11-20 14:56 | Emergency (ER) | payer OTHER ==
[~2021-11-20] VITALS: Wt 86.2 kg
[2021-11-20] MEDS ORDERED: AUGMENTIN 875-875 MG PO (16:14)
== END 2021-11-20 16:22 | disposition home or self-care (01) ==
LOC: ED 14:56
DX: H66.92 Otitis media, unspecified, left ear (principal)

== ENCOUNTER 2022-02-08 15:12 | Emergency (ER) | payer BC, OTHER ==
[~2022-02-08 15:12] MED LIST changes: +AUGMENTIN 875-875 MG PO
== END 2022-02-08 19:36 ==
LOC: ED 15:12
DX: R07.81 Pleurodynia (principal); Z53.21 Procedure and treatment not carried out due to patient leaving prior to being seen by health care provider

== ENCOUNTER 2022-02-12 23:53 | Emergency (ER) | payer BC, OTHER ==
[~2022-02-12] VITALS: Ht 170.1 cm; Wt 81.6 kg
== END 2022-02-13 00:41 | disposition home or self-care (01) ==
LOC: ED 23:53
DX: S20.211A Contusion of right front wall of thorax, initial encounter (principal); Z79.899 Other long term (current) drug therapy; W22.8XXA Striking against or struck by other objects, initial encounter; Y93.89 Activity, other specified; Y92.89 Other specified places as the place of occurrence of the external cause; Y99.8 Other external cause status

== ENCOUNTER 2024-10-15 16:58 | Emergency (ER) | payer SELFPAY ==
[~2024-10-15] VITALS: Ht 182.8 cm; Wt 95.3 kg
== END 2024-10-15 19:02 | disposition home or self-care (01) ==
LOC: ED 16:58
DX: H00.012 Hordeolum externum right lower eyelid (principal); Z87.891 Personal history of nicotine dependence

== ENCOUNTER 2025-02-17 16:31 | Emergency (ER) | payer MEDICAID ==
[~2025-02-17] VITALS: Ht 182.8 cm; Wt 90.7 kg
[2025-02-17] MEDS ORDERED: SODIUM CHLORIDE 0.9% 1,000 ML IV ONE (17:00)
[2025-02-17] MEDS ORDERED: Ondansetron Hydrochloride 4 MG/2 ML VIAL IV ONE (17:00)
[2025-02-17] MEDS ORDERED: FAMOTIDINE 50 ML IV ONE (17:00)
[2025-02-17 17:21] LABS: BASO # 0.1 10*3/uL (0.0-0.1); BASO % 1.0 % (0.0-1.0); EOS # 0.2 10*3/uL (0.0-0.4); EOS % 2.6 % (1.0-4.0); MEAN CELL VOLUME 91.2 fl (80.0-94.0); MEAN CORPUSCULAR HGB 29.7 pg (27.0-31.0); MEAN PLATELET VOLUME 8.5 fl (9.6-12.3); MONO # 0.8 10*3/uL (0.1-1.0); MONO % 10.5 % (3.0-9.0); NEUT # 3.6 10*3/uL (2.3-7.9); NEUT % 47.8 % (47.0-73.0); NUCLEATED RED BLOOD CELL 0.0 % (0.0-0.0); NUCLEATED RED BLOOD CELL 0.0 10*3/uL (0.0-0.0); PLATELET COUNT AUTOMATED 313 10*3/uL (130-400); RED CELL DISTRI WIDTH 12.9 % (0-14.5)
[2025-02-17 17:39] LABS: BUN 14 mg/dl (9-23)
== END 2025-02-18 10:14 | disposition home or self-care (01) ==
LOC: ED 16:31
PROVIDERS: Emergency Medicine
DX: R07.89 Other chest pain (principal); R10.12 Left upper quadrant pain; I10 Essential (primary) hypertension; F17.200 Nicotine dependence, unspecified, uncomplicated

== ENCOUNTER 2025-03-09 01:31 | Emergency (ER) | payer MEDICAID ==
[~2025-03-09] VITALS: Ht 182.8 cm; Wt 99.8 kg
[2025-03-09 02:42] LABS: BASO # 0.1 10*3/uL (0.0-0.1); BASO % 1.1 % (0.0-1.0); EOS # 0.3 10*3/uL (0.0-0.4); EOS % 3.3 % (1.0-4.0); MEAN CELL VOLUME 92.1 fl (80.0-94.0); MEAN CORPUSCULAR HGB 30.1 pg (27.0-31.0); MEAN PLATELET VOLUME 8.7 fl (9.6-12.3); MONO # 0.8 10*3/uL (0.1-1.0); MONO % 9.7 % (3.0-9.0); NEUT # 4.3 10*3/uL (2.3-7.9); NEUT % 50.8 % (47.0-73.0); NUCLEATED RED BLOOD CELL 0.0 % (0.0-0.0); NUCLEATED RED BLOOD CELL 0.0 10*3/uL (0.0-0.0); PLATELET COUNT AUTOMATED 286 10*3/uL (130-400); RED CELL DISTRI WIDTH 13.1 % (0-14.5)
[2025-03-09 03:01] LABS: BUN 16 mg/dl (9-23)
== END 2025-03-09 04:14 | disposition left against medical advice (07) ==
LOC: ED 01:31
PROVIDERS: Internal Medicine
DX: I10 Essential (primary) hypertension (principal); F41.9 Anxiety disorder, unspecified; F17.200 Nicotine dependence, unspecified, uncomplicated

== ENCOUNTER 2025-05-13 21:06 | Emergency (ER) | payer OTHER ==
[~2025-05-13] VITALS: Ht 182.8 cm; Wt 102.1 kg
== END 2025-05-13 22:39 | disposition left against medical advice (07) ==
LOC: ED 21:06
DX: I10 Essential (primary) hypertension (principal); F17.200 Nicotine dependence, unspecified, uncomplicated; Z53.29 Procedure and treatment not carried out because of patient's decision for other reasons